=== PATIENT | female | born 2005 | race Caucasian/White ===

== ENCOUNTER 2025-05-27 10:02 | Outpatient (AMB) | payer BC, SELFPAY ==
--- NOTE | 2025-05-27 10:04 | MHC.OFFVIS ---
Intake Visit Reasons: 6 MONTH F/U Allergies No Known Allergies Allergy (Verified 05/27/25 10:05) Medication List - Last Reconciled 05/27/25 by Sanam Prince CNP levocetirizine 5 mg PO DAILY PRN metformin 1,000 mg PO DAILY semaglutide (weight loss) (Wegovy) 0.5 mg subcut Q4W sumatriptan succinate take 1 tab at onset of headache; if no relief, may repeat 1 tab after at least 2 hrs; max = 2 tabs/24 hrs PO topiramate 50 mg PO BEDTIME HPI Comments Details: 20-year-old woman with migraine. She was getting more migraines over the last 2 months or so. She was getting headaches about 2x/week with photophobia, sonophobia, and nausea. No vomiting. Sumatriptan was helping as much anymore. Triggers included certain smells and loud noises. Sometimes, she was waking with headaches. Sleep was okay. [facility] Medical History (Updated 05/27/25 @ 10:07 by Sanam Prince CNP) Migraine Family History (Updated 05/27/25 @ 10:07 by Sanam Prince CNP) Mother Headache Review of Systems Const Denies chills, Denies daytime sleepiness, Denies difficulty sleeping, Denies fatigue, Denies fever(s), Denies frequent falls, Reports headache(s), Denies increased appetite, Denies poor appetite, Denies snoring, Denies weakness, Denies weight gain and Denies weight loss Eyes Denies loss of vision ENT Denies vertigo, Denies dizziness and Reports headache(s) Card Denies chest pain at rest, Denies chest pain with activity, Denies syncope, Denies leg edema and Denies palpitations Resp Denies snoring GI Denies constipation, Denies heartburn, Denies diarrhea and Denies nausea Denies urinary frequency, Denies urinary incontinence and Denies urinary urgency Musc Denies abnormal gait, Denies numbness and Denies tingling Skin/Breast Denies dry skin and Denies rash Neuro Denies abnormal gait, Denies vertigo, Denies dizziness, Denies syncope, Denies frequent falls, Reports headache(s), Denies lack of coordination, Denies loss of vision, Denies memory loss, Denies numbness, Denies restless legs, Denies seizure-like activity, Denies tingling, Denies paresthesias, Denies tremor(s) and Denies weakness Psych Denies anxiety, Denies depression, Denies auditory hallucinations, Denies memory loss, Denies visual hallucinations and Denies suicidal ideation Endo Denies fatigue and Denies palpitations Physical Exam Const Other: General Appearance:? normal, in no acute distress. Skin:? no rashes, no significant birthmarks. Heart:? S1, S2 normal, no murmurs. Lungs:? clear anteriorly and posteriorly. Extremities:? no edema. Psych:? alert, oriented, cognitive function intact, cooperative with exam. Neuro Other: Mental Status:?Normal attention, orientation, memory and affect.? Cranial Nerves:?Pupils are equal, round and reactive to light. External occular muscles are intact. Visual purdy are full. Face is symmetrical. Facial sensations are normal. Tongue is midline. Palate elevates symmetrically. Shoulder shrugging is normal. Hearing to bedside conversation is normal. Sensory Exam:?....? Coordination:?No ataxia,?no titubation.? Gait Exam: Within normal limits. Cerebellar Signs:?Nxluae-xy-hizv is okay. Extrapyramidal System:?No tremor, rigidity with normal facial expressions.? Pronator Drift:?Not present.? Involuntary Movements:?No tremors seen.? Speech:?Normal.? Assessment & Plan Assessment & Plan (1) Migraine without aura: Code(s): G43.009 - Migraine without aura, not intractable, without status migrainosus Category: Medical Qualifiers: Status migrainosus presence: without status migrainosus Intractability: not intractable Qualified Code(s): G43.009 - Migraine without aura, not intractable, without status migrainosus Plan: Sumatriptan was not helping and medication was stopped. Increase topiramate 50mg 1 tablet twice a day. Start rizatriptan 10mg 1 tablet as needed for migraine, use/side effects reviewed. Start ondansetron 4mg 1 tablet as needed for nausea/vomiting #10 for 30 days, use/side effects reviewed. She was going to college in [place], studying [employer]. Will keep follow up as 6 months or sooner as needed. She was advised to contact the office for any new/worsening symptoms, and she was agreeable. Medications: New rizatriptan take 1 tab at onset of headache; if no relief may repeat 1 tab after at least 4 hrs; max = 2 tabs/24 hr PO 10 tabs 5RF 30 days topiramate 50 mg PO BID 180 tabs 0RF 90 days ondansetron 4 mg PO DAILY PRN 10 tabs 5RF nausea and vomiting 30 days Coding Level of Care Code Est Pt Level 4 (65629) Diagnoses Migraine without aura and without status migrainosus, not intractable G43.009 Status migrainosus presence: without status migrainosus Intractability: not intractable
--- OUTSIDE RECORDS SUMMARY | 2025-05-27 12:04 | XMS_ITS ---
Author Name [facility] Organization Unknown History of Medication Use Medication Directions Dispensed Refills Start Date End Date Status levocetirizine (XYZAL) 5 MG tablet 1 tablet daily as needed 0 24 active montelukast (SINGULAIR) 10 MG tablet Take 1 tablet (10 mg total) by mouth nightly. 12/21/19 24 active EPINEPHrine 0.3 mg/0.3 mL IJ auto-injection Inject 0.3 mL (0.3 mg total) into the shoulder, thigh, or buttocks once as needed for allergic reaction. 10/10/19 24 active amoxicillin-pot clavulanateTake 1 Tablet (oral) 2 times per day for 7 [id number] times per [id number] 5mg 08/08/19 24 active spironolactone (ALDACTONE) 100 MG tablet Take 1 tablet (100 mg total) by mouth daily. 07/21/19 24 active SUMAtriptan (IMITREX) 100 MG tablet TAKE 1 TABLET BY MOUTH EVERY DAY NEEDED FOR 30 DAYS 07/21/19 24 active topiramate (TOPAMAX) 50 MG tablet Take 1 tablet (50 mg total) by mouth daily. 07/21/19 24 active MacrobidTake 1 Capsu le 2 times per day for 7 [id number] times per dayNo route frscdkyd7ptowbtilmtzvl75 0mg 03/10/20 23 suspended montelukastTake 1 Ta blet (oral) at bedtime for 30 [id number] bedtime jrwx98wothhlnrbcuwp49rw 03/08/20 23 suspended promethazine-DMTake 5 ml (oral) every 4 [id number] 4 hoursoralNo set duration recordeddayssuspended6.2 5-15mg/5 mL 02/12/20 23 suspended azelastine (ASTELIN) 0.1 % nasal spray 2 sprays into each nostril. 11/30/19 024 active levocetirizine (XYZAL) 5 MG tablet Take 1 tablet (5 mg total) by mouth daily. 10/22/19 024 aborted triamcinolone (NASACORT AQ) 55 MCG/ACT Aerosol nasal spray 2 sprays per nostril daily 10/22/19 active levocetirizineTake (oral)[id number] frequency recordedoralNo set duration recordedNo set duration amount kpjqgneerbqyyb2bh 10/22/19 active triamcinolone acetonideTake (intranasal)[id number] ravi, SprayNo frequency recordedintranasalNo set duration recordedNo set duration amount nwgvwtatkdqddzndl27cfx 10/22/19 suspended azelastineTake (intranasal)[id number] ravi, spray with pumpNo frequency recordedintranasalNo set duration recordedNo set duration amount wruuzcmdfragsnveb916 mcg(0.1 %) 09/24/19 suspended topiramateTake (oral)28225162sktllqNl frequency recordedoralNo set duration recordedNo set duration amount jfxvqbjwzdluto48wr 01/15/20 22 active metFORMINTake (oral) No date recordedtabletNo frequency recordedoralNo set duration recordedNo set duration amount fsncsoarbuhnpm432ij active EPINEPHrineTake (injection)No date recordedAuto-InjectorNo frequency recordedinjectionNo set duration recordedNo set duration amount recordedsuspended0.3mg/0 .3 mL suspended NexplanonTakeNo date recordedNo form recordedNo frequency recordedNo route recordedNo set duration recordedNo set duration amount recordedactiveNo dosage strength recordedNo dosage strength units of measure recorded active spironolactoneTakeNo date recordedNo form recordedNo frequency recordedNo route recordedNo set duration recordedNo set duration amount recordedactiveNo dosage strength recordedNo dosage strength units of measure recorded active SUMAtriptan succinateTake (oral)No date recordedtabletNo frequency recordedoralNo set duration recordedNo set duration amount imgmumnxjuvaim380ul active Etonogestrel (NEXPLANON SC) Inject under the skin. active metFORMIN (GLUCOPHAGE) 500 MG tablet Take 1 tablet (500 mg total) by mouth 2 (two) times a day with meals. acti ve Allergies Allergen Reaction Severity Comment Documented Date Source Statu s POLLEN EXTRACT ITCHING 08/31/2017 [facility] active Problems Problem Status Onset Date Problem Type Date of Resolution Source Acute sinusitis, unspecified active 2023-08-08 [facility] Insulin resistance, unspecified active [facility] Influenza due to other identified influenza virus with other respiratory manifestations active 2023-08-08 [facility] Other seasonal allergic rhinitis active [facility] Migraine headache active 2015-11-26 ProblemAct [facility] Irregular menstrual cycle active 2020-01-22 ProblemAct [facility] Allergic conjunctivitis, bilateral active EncounterDiagnosisAct [facility] Insulin resistance active 2023-10-10 ProblemAct [facility] Allergic rhinitis active 2010-10-13 ProblemAct [facility] [place]atter's disease of both knees active 2020-08-15 ProblemAct [facility] Hirsutism active 2020-08-15 ProblemAct [facility] Vitamin D deficiency active 2017-06-27 ProblemAct [facility] Non-seasonal allergic rhinitis due to other allergic trigger active EncounterDiagnosisAct [facility] Immunizations Vaccine Date Source Lot Number Status Influenza, Unspecified 04/25/2023 [facility] [id number] co mpleted Influenza, Unspecified 04/21/2022 [facility] [id number] co mpleted Meningococcal MCV4O (Menveo) 04/21/2022 [facility] [id number] A completed Influenza, Unspecified 03/25/2021 [facility] [id number] co mpleted Influenza, Unspecified 05/23/2018 [facility] [id number] co mpleted HPV Nonavalent 06/24/2017 [facility] [id number] completed Influenza, Unspecified 06/24/2017 [facility] [id number] co mpleted HPV Nonavalent 11/25/2016 [facility] [id number] completed Meningococcal MCV4P (Menactra) 11/25/2016 [facility] [id number] completed Tdap 11/25/2016 [facility] [id number] completed Influenza Inactivated/Split Preservative Free IM 04/09/2011 [facility] [id number] completed MMR 07/28/2010 [facility] [id number] completed Varicella 07/28/2010 [facility] [id number] completed Influenza Inactivated/Split Preservative Free IM 03/23/2010 [facility] [id number] completed DTaP 07/22/2009 [facility] [id number] completed IPV 07/22/2009 [facility] [id number] completed Influenza Inactivated/Split Preservative Free IM 05/07/2008 [facility] [id number] completed Hep A, 2 Dose 2007 [facility] [id number] completed Influenza Inactivated/Split Preservative Free IM 2007 [facility] [id number] completed DTAP / HiB 08/12/2006 [facility] [id number] completed Hep A, 2 Dose 08/12/2006 [facility] [id number] completed Influenza Inactivated/Split Preservative Free IM 05/04/2006 [facility] [id number] completed MMRV 05/04/2006 [facility] [id number] completed Pneumococcal Conjugate 7-Valent 05/04/2006 [facility] [id number] [id number] completed Influenza Inactivated/Split Preservative Free IM 04/01/2006 [facility] [id number] completed DTaP / Hep B / IPV 2005 [facility] [id number] comple tricia DTaP / HiB / IPV 2005 [facility] [id number] complete d Pneumococcal Conjugate 7-Valent 2005 [facility] B086 43D completed DTaP / Hep B / IPV 2005 [facility] [id number] comple tricia DTaP / HiB / IPV 2005 [facility] [id number] complete d Pneumococcal Conjugate 7-Valent 2005 [facility] B086 38F completed DTaP / Hep B / IPV 2005 [facility] [id number] comple tricia DTaP / HiB / IPV 2005 [facility] [id number] complete d Pneumococcal Conjugate 7-Valent 2005 CCT [id number] 41F completed Hep B, Adolescent or Pediatric 2005 CCT completed Encounters Encounter Type Encounter Reason Primary Diagnosis Location Date Ambulatory Encounter for general adult medical examination without abnormal findings Encounter for general adult medical examination without abnormal findings [facility] 01/16/2025 Ambulatory Other allergic rhinitis Other allergic rhinitis [facility] 12/21/2023 Ambulatory Other seasonal allergic rhinitis Other seasonal allergic rhinitis [facility] 10/10/2023 Ambulatory [facility] 03/10/2023 Ambulatory [facility] 03/08/2023 Ambulatory [facility] 02/11/2023 Care Team Organization Name Specialty Phone Email Start Date End [facility] 03/28/2025 [facility] SHIVANI Primary Care 10/11/2023 [facility] MEHRDAD PARRISH Primary Care 10/10/2023 [facility] NO PCP Primary Care 08/23/2023 [facility] NO PROVIDER Primary Care 06/26/2023 [facility] 02/11/2023 01/29/2025 [facility] 02/11/2023 02/11/2023
--- OUTSIDE RECORDS SUMMARY | 2025-05-27 12:04 | XMS_ITS | Clinical Summary ---
Author Organization [facility] [address] [facility] lding Address [address] [place] [address] Phone Care Team Providers Care Medical Biller/Coder Name Role Phone Ghazala Birgit FLEMING Primary Care Provider [phone] Allergies Active Allergy Reactions Criticality Noted Date Comments Bee Pollen Itching Low 08/31/2017 Other Runny nose 08/31/2017 Seasonal allergies Medications etonogestrel-elut ing contraceptive device (Nexplanon) 68 mg implant subdermal implant Inject 68 mg into the skin Once. 1 Active spironolactone (ALDACTONE) 100 mg tablet TAKE 1 TABLET BY MOUTH EVERY DAY 4 Active SUMAtriptan (IMITREX) 100 mg tablet Take 100 mg by mouth daily. 1 Active triamcinolone (NASACORT) 55 mcg nasal inhaler INHALE 1 TO 2 SPRAYS EACH NOSTRIL ONCE A DAY 3 Active EPINEPHrine (EPIPEN) 0.3 mg/0.3 mL injection INJECT 0.3 ML INTO THE SHOULDER, THIGH, OR BUTTOCKS ONCE NEEDED FOR ALLERGIC REACTION. 4 Active azelastine (ASTELIN) 137 mcg (0.1 %) nasal spray Administer 2 sprays into affected nostril(s). 3 Active montelukast (SINGULAIR) 10 mg tablet Take 1 tablet (10 mg total) by mouth at bedtime. 4 Active metFORMIN (GLUCOPHAGE) 1,000 mg tablet Take 0.5 tablets (500 mg total) by mouth 2 (two) times a day with meals. 4 Active topiramate (TOPAMAX) 50 mg tablet Take 1 tablet (50 mg total) by mouth 1 (one) time each day. for 90 days 4 Active EPINEPHrine (EPIPEN) 0.3 mg/0.3 mL injection Inject 0.3 mL (0.3 mg total) into the thigh once daily as needed. 4 Active levocetirizine (XYZAL) 5 mg tablet 1 tablet daily as needed 4 Active Active Problems Problem Noted Date Diagnosed Date Depression 04/21/2022 Right elbow pain 07/22/2021 Overview (03/20/2024): 07/28: injured sliding into base. Xray negative. 07/16/21: seen at [facility]. Strain flexor pronator mass. Symptomatic treatment head/itce for 3 weeks. No physical acitivity for 3 weeks. F/u prn Hirsutism 08/15/2020 Overview (03/20/2024): 01/24: seen by Manish Roberts spironolactone 100 mg po daily f/u March [place]-Schlatter's disease of both knees 021 Irregular menstrual cycle 01/22/2020 Tinea versicolor 01/22/2020 Acne vulgaris 12/01/2017 Vitamin D deficiency 06/27/2017 Overview (03/20/2024): 06/27/17- levels of 20, started on 2000 units for next 6 weeks of Vit D 01/23: vitamin d, 20 restarted on vitamin d supplement Childhood obesity 11/26/2015 Overview (03/20/2024): 11/19: Normal screening labs, referred to Dr. Guzman's 123 power of ak Migraine headache 11/26/2015 Overview (03/20/2024): 02/22: headaches that wake her from sleep worsening in severity. MRI brain : nl started on topirimate. 03/22/19: seen by Dr. Baker, advised to stop the topirimate. C/w sumatriptan 100 mg po prn. F/u 4 weeks 07/19/19: [facility]. For migraine prophylaxis she is on topiramate 25 mg once a day. She reports the medication is helping her. Sumatriptan 100 mg orally once a day. Follow-up next summer. 01/15/21: Allergic rhinitis 10/13/2010 Overview (03/20/2024): spring and end of summer; claritan, nose spray, eye drops 06/23: positive [place] allergy panel to maple, birch and oak trees. Kevyn grass and to a lesser extent Elm trees and ragweed Immunizations Immunization Administration Dates Next Due DTaP (Infanrix) 6wks to less than 7yo 07/22/2009 DTaP / Hib 08/12/2006 [id number]-LUN-RSG (Pentacel) 2mo to less than 5yo 2005,2005,2005 GNgH-FkqF-QKP (Pediarix) 6 w ks to less than 7yo 2005,2005,2005 HPV 9-valent (Gardisil) 9yo to less than 46yo 06/24/2017,11/25/2016 Hepatitis A Pediatric (Havri x; Vaqta) 12mo to less than 19yo 2007,08/12/2006 Hepatitis B Pediatric (Enger ix B; Recombivax HB) to less than 20 yo 2005 IPV Inactivated polio (Ipol) 6wks and older 07/22/2009 Influenza trivalent, 0.5mL, preservative free (Fluarix; FluLaval; Fluzone) ages 6mo and older (Afluria) 3 years and older 04/25/2023,04/21/2022,03/25/2021,05/23,06/24/2017,04/09/2011,03/23/2010 ,05/07/2008 Influenza trivalent, with pr eservative (Fluzone; Afluria) 6mo and older 2007,05/04/2006,04/01/2006 MMR, measles mumps and rubel la Live (Priorix; M-M-R II) 12mo and older 07/28/2010 MMRV, measles mumps rubella and varicella live (Proquad) 4yo to less than 7yo 05/04/2006 Meningococcal Conjugate (Men veo) MenACWY 11yo to less than 19 yo 04/21/2022 Meningococcal MCV4P 11/25/2016 Pneumococcal Conjugate Vacci ne, 7 Valent 05/04/2006,2005,2005,07/12 Tdap Tetanus diptheria acell ular pertussis (Boostrix; Adacel) 7yo and older 11/25/2016 Varicella live (Varivax) 12m o and older 07/28/2010 Surgical History Surgery Date Site/Laterality Comments OTHER SURGICAL HISTORY PROCEDURE: DENIES PREVIOUS SURGERY Medical History Medical History Date Comments Lactose intolerance DX:Lactose i ntolerance Allergic rhinitis DX:Allergic rh initis; COMMENT: spring Allergic conjunctivitis DX:Aller gic conjunctivitis; COMMENT: spring Obesity DX:Obesity Fracture of thumb, right, closed 12/17 DX:Fracture of thumb, right, closed; COMMENT: shilpa 2; not displaced Fracture of phalanx of right little finger 09/25/2015 DX:Fracture of phalanx of ri ght little finger; COM[facility]: [facility] proximal ph[facility]. Ulnar gutter cast. Recheck in 3 weeks Overweight for pediatric patient 09/06/2013 DX:Overweight for pediatric patient Sinus headache 10/18/2018 DX:Sinus headach e Migraine headache with aura DX:M igraine headache with aura Tinea versicolor 01/22/2020 DX:Tinea versic olor Perennial allergic rhinitis 10/18/2018 DX:P erennial allergic rhinitis Perennial allergic conjuncti vitis of both eyes 10/18/2018 DX:Perennial allergic conjun ctivitis of both eyes Family History Medical History Relation Name Comments Asthma Brother Asthma Father Hyperlipidemia Father Other cancer Maternal Grandfather ESOPHAG EAL Allergies Mother Migraines Mother Heart attack Mother's side 42 Diabetes Paternal Grandfather Breast cancer Paternal Grandmother Asthma Sister Ovarian cancer Neg Hx Uterine cancer Neg Hx Relation Name Status Comments Brother Father Alive obesity Maternal Grandfather esophag eal CA; coronary bypass Maternal Grandmother Alive Mother Alive platelet disord er; migraines; obesity Mother's side Paternal Grandfather Alive Paternal Grandmother CA mult sites Sister Social History Tobacco Use Types Packs/Day Years Used Date Smoking Tobacco: Never Smokeless Tobacco: Never Alcohol Use Standard Drinks/Week Comments No 0 (1 standard drink = 0.6 oz pur e alcohol) Comments No Sex and Gender Information Value Date Recorded Sex Assigned at Not on file Legal Sex Female 11:27 AM EST Gender Identity Not on file Sexual Orientation Not on file 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 Not on file Not on file Not on file Obstetrics History Para Term AB IAB SAB Ectopic Multiple Livin g Live Births 0 0 0 0 0 0 0 0 Last Filed Vital Signs Vital Sign Reading Time Taken Comments Blood Pressure 125/85 05/01/2024 3:30 PM EST Pulse 104 05/01/2024 3:30 PM EST Temperature - - Respiratory Rate - - Oxygen Saturation - - Inhaled Oxygen Concentration - - Weight 122 kg (268 lb) 05/01/2024 3:30 PM EST Height 172.5 cm (5' 7.91 ) 04/25/2023 3:12 PM ES T Body Mass Index - - Plan of Treatment Health Maintenance Due Date Last Done Comments Meningococcal B Vaccine (1 of 2 - Standard) 2021 HIV Screening 05/15/2022 Hepatitis C Screening 05/15/2022 Social Influencers of Health Screening 05/15/2022 Depression Screening 06/06/2024 COVID-19 Vaccine ( season) 2025 11/24/2020, 10/24/2020 Influenza Vaccine (#1) 2025 , 04/21/2022, 03/25/2021, Additional history exists Annual Well Child Visit (3-21 years old) 05/01/2025 05/01/2024, 04/25/2023, 04/21/2022, Additional history exists Gonorrhea/Chlamydia Screening 05/01/2025 05/01/2024, 04/25/2023 Cholesterol Screening (Lipid Panel) 03/25/2026 03/25/2021 DTaP,Tdap,and Td Vaccines (7 - Td or Tdap) 11/25/2026 11/25/2016, 07/22/2009, 08/12/2006, Additional history exists RSV Immunization Adult Patients (1 - 1-dose 75+ series) 2080 Hepatitis B Vaccines Completed 2005, 2005, 2005, Additional history exists Pneumococcal Vaccine: Pediatrics (0 to 5 Years) and At-Risk Patients (6 to 49 Years) Completed 05/04/2006, 2005, 2005, Additional history exists HIB Vaccines Completed 08/12/2006, 07/2005, 2005, Additional history exists Hepatitis A Vaccines Completed 2007, 08/13/19 07 IPV Vaccines Completed 07/22/2009, 07/2005, 2005, Additional history exists MMR Vaccines Completed 07/28/2010, 05/04/2006 Varicella Vaccines Completed 07/28/2010, 05/04/2006 HPV Vaccines Completed 06/24/2017, 11/25/2016 Meningococcal ACWY Vaccine Completed 11/27, 04/21/2022, 11/25/2016 RSV Immunization Patients Under 20 months Aged Out No longer eligible based on patient's age to complete this topic Procedures Procedure Name Priority Date/Time Associated Diagnosis Comments CHLAMYDIA TRACHOMATIS AND NEISSERIA GONORRHOEAE PCR Routine 05/01/2024 4:42 PM EST Screen for STD (sexually transmitted disease) LIPID PANEL Routine 03/25/2021 from Last 3 Months or Most Recently Relevant to Health Maintenance Results * Chlamydia trachomatis and Neisseria gonorrhoeae molecular study (05/01/2024 4:42 PM EST) Neisseria gonorrhoeae PCR Negative Negative LAB MOLECULAR DIAGNOSTICS METHOD 05/02/2024 9:38 AM EST [facility] Chlamydia trachomatis PCR Negative Negative LAB MOLECULAR DIAGNOSTICS METHOD 05/02/2024 9:38 AM [facility] Swab Vaginal structure / Unknown Non-blood Collection / Unknown 05/01/2024 4:42 PM EST 05/01/2024 4:44 PM EST Asaf Waters CNM LAB MICROBIOLOGY - GENERAL ORD ERABLES Final Result [facility] [address] [place] [address], * (ABNORMAL) Lipid panel (03/25/2021) LDL/HDL Ratio 3 0 - 4 Triglycerides 111 0 - 150 mg/dL Cholesterol 124 0 - 200 mg/dL HDL 36(A) >=40 mg/dL LDL Cholesterol 66 0 - 100 mg/dL Blood Venous blood specimen / Unknown Historical Provider LAB BLOOD ORDERABLES Luh l Result from Last 3 Months or Most Recently Relevant to Health Maintenance Insurance Care Teams Medical Biller/Coder Relationship Specialty Start Date End Date Birgit Vivar DO PCP - General Internal Medicine 02/19/22
--- OUTSIDE RECORDS SUMMARY | 2025-05-27 12:04 | XMS_ITS | Encounter Summary ---
Author Organization [facility] Address [address] [place] [address] Care Team Providers Care Hot Tamale Worker Name Role Phone Dianna Cano PA-C Primary Care Provi sabrina Encounter Details Date Type Department Care Team (Late st Contact Info) Description 05/24/2024 Scanned Document [address] [place] [id number] Primary Care, Scan Social History Tobacco Use Types Packs/Day Years Used Date Smoking Tobacco: Never Smokeless Tobacco: Never Alcohol Use Standard Drinks/Week Comments Never 0 (1 standard drink = 0.6 oz pur e alcohol) PHQ-2 Answer Date Recorded PHQ-2 Total Score 2 10/10/2023 Comments Unknown Sex and Gender Information Value Date Recorded Sex Assigned at Female 08/23/2023 9:26 AM EDT Legal Sex Female 9:25 AM EDT Gender Identity Not on file Sexual Orientation Not on file documented as of this encounter Plan of Treatment Not on file documented as of this encounter Visit Diagnoses Not on filedocumented in this encounter Care Teams Hot Tamale Worker Relationship Specialty Start Date End Date Dianna Cano PA-C [address] [place] [address] PCP - General Internal Medicine 10/10/23 documented as of this encounter
--- OUTSIDE RECORDS SUMMARY | 2025-05-27 12:04 | XMS_ITS | Encounter Summary ---
Author Organization [facility] Address [address] [place] [address] Care Team Providers Care Coach Operator Name Role Phone Dianna Cano PA-C Primary Care Provi sabrina Encounter Details Date Type Department Care Team (Late st Contact Info) Description 12/06/2024 Scanned Document [facility] [address] [place] [address] Endocrinology, Scan Social History Tobacco Use Types Packs/Day [...] on filedocumented in this encounter Care Teams Coach Operator Relationship Specialty Start Date End Date Dianna Cano PA-C [address] [place] [address] PCP - General Internal Medicine 10/10/23 documented as of this encounter
--- OUTSIDE RECORDS SUMMARY | 2025-05-27 12:04 | XMS_ITS | Clinical Summary ---
Author Organization [facility] Address [address] [place] [address] Care Team Providers Care Gaming Worker Name Role Phone Dianna Cano PA-C Primary Care Provi sabrina Allergies Active Allergy Reactions Criticality Noted Date Comments [place] Oil Anaphylaxis High 01/29/2024 pistachio Pollen Extract Itching Low 08/31/2017 Medications topiramate (TOPAMAX) 50 MG tablet Take 1 tablet (50 mg total) by mouth daily. 07/21/2023 Active spironolactone (ALDACTONE) 100 MG tablet Take 1 tablet (100 mg total) by mouth daily. 07/21/2023 Active metFORMIN (GLUCOPHAGE) 500 MG tablet Take 2 tablets (1,000 mg total) by mouth daily. Active Etonogestrel (NEXPLANON SC) Inject under the skin. Active EPINEPHrine 0.3 mg/0.3 mL IJ auto-injectionI ndications:Seas onal allergies Inject 0.3 mL (0.3 mg total) into the shoulder, thigh, or buttocks once as needed for allergic reaction. 2 each 1 10/10/2023 Active Wegovy 0.5 MG/0.5ML Solution Auto-injector 01/07/2025 Activ e levocetirizine (XYZAL) 5 MG tabletIndicatio ns:Non-seasonal allergic rhinitis due to other allergic trigger 1 tablet daily as needed 90 tablet 3 01/16/2025 Active Active Problems Problem Noted Date Diagnosed Date PCOS (polycystic ovarian syndrome) 01/16/2025 Assessment & Plan (01/16/2025 3:21 PM EDT): Follows with [facility] endocrine. Last seen November 30, 2024. She is on Nexplanon for menstrual regulation. She is on spironolactone for hirsutism. She is on metformin for insulin resistance. She was started on Wegovy for weight loss and to decrease her risk of metabolic syndrome. She is down 55 pounds since last year. She is working very hard with diet and exercise as well. She states that her periods are much more regular. Insulin resistance 10/10/2023 10/10/2023 Assessment & Plan (01/16/2025 3:21 PM EDT): Follows with [facility] endocrine. Last seen November 30, 2024. She is on Nexplanon for menstrual regulation. She is on spironolactone for hirsutism. She is on metformin for insulin resistance. She was started on Wegovy for weight loss and to decrease her risk of metabolic syndrome. She is down 55 pounds since last year. She is working very hard with diet and exercise as well. She states that her periods are much more regular. Hirsutism 08/15/2020 10/10/2023 Overview (10/10/2023): 01/24: seen by Manish Roberts spironolactone 100 mg po daily /march Assessment & Plan (01/16/2025 3:21 PM EDT): Follows with [facility] endocrine. Last seen November 30, 2024. She is on Nexplanon for menstrual regulation. She is on spironolactone for hirsutism. She is on metformin for insulin resistance. She was started on Wegovy for weight loss and to decrease her risk of metabolic syndrome. She is down 55 pounds since last year. She is working very hard with diet and exercise as well. She states that her periods are much more regular. [place]-Schlatter's disease of both knees 021 10/10/2023 Irregular menstrual cycle 01/22/20202023 Assessment & Plan (01/16/2025 3:21 PM EDT): Follows with [facility] endocrine. Last seen November 30, 2024. She is on Nexplanon for menstrual regulation. She is on spironolactone for hirsutism. She is on metformin for insulin resistance. She was started on Wegovy for weight loss and to decrease her risk of metabolic syndrome. She is down 55 pounds since last year. She is working very hard with diet and exercise as well. She states that her periods are much more regular. Vitamin D deficiency 06/27/2017 10/10/2023 Overview (10/10/2023): 06/27/17- levels of 20, started on 2000 units for next 6 weeks of Vit D 01/23: vitamin d, 20 restarted on vitamin d supplement Assessment & Plan (01/16/2025 2:55 PM EDT): Will check vitamin D level. Patient is not on any vitamin D supplements. Migraine headache 11/26/2015 10/10/2023 Overview (10/10/2023): 02/22: headaches that wake her from sleep worsening in severity. MRI brain : nl started on topirimate. 03/22/19: seen by Dr. Baker, advised to stop the topirimate. C/w sumatriptan 100 mg po prn. F/u 4 weeks 07/19/19: At [facility]. For migraine prophylaxis she is on topiramate 25 mg once a day. She reports the medication is helping her. Sumatriptan 100 mg orally once a day. Follow-up next summer. 01/15/21: Assessment & Plan (01/16/2025 3:21 PM EDT): Patient follows with neurology. She is on topiramate for prevention. Takes Imitrex as needed. Gets 1-2 headaches a month of that. Allergic rhinitis 10/13/2010 10/10/2023 Overview (10/10/2023): 09/18 spring and end of summer; claritan, nose spray, eye drops 06/23: positive [place] allergy panel to maple, birch and oak trees. [place] grass and to a lesser extent Elm trees and ragweed Assessment & Plan (01/16/2025 3:21 PM EDT): No longer following with hospice administrator. Taking Xyzal daily. Orders: levocetirizine (XYZAL) 5 MG tablet; 1 tablet daily as needed Immunizations Immunization Administration Dates Next Due DTAP / HiB 08/12/2006 DTaP 07/22/2009 DTaP / Hep B / IPV 2005,2005, 006 DTaP / HiB / IPV 2005,2005, 6 HPV Nonavalent 06/24/2017,11/25/2016 Hep A, 2 Dose 2007,08/12/2006 Hep B, Adolescent or Pediatric 2005 IPV 07/22/2009 Influenza Inactivated/Split Preservative Free IM 04/09/2011,03/23/2010,05/07/2008,05/03,05/04/2006,04/01/2006 Influenza Virus Trivalent Sp lit Vaccine (MDV) IM 2007,05/04/2006,04/01/2006 Influenza, Trivalent (FLUARI X, AFLURIA, FLULAVAL, FLUZONE) Preservative Free IM 04/25/2023,04/21/2022,03/25/2021,05/23,06/24/2017,04/09/2011,03/23/2010 ,05/07/2008 Influenza, Unspecified 04/25/2023,2021,03/25/2021,05/23,06/24/2017 MMR 07/28/2010 MMRV 05/04/2006 Meningococcal MCV4O (Menveo) 04/21/2022 Meningococcal MCV4P (Menactra) 11/25/2016 Pneumococcal Conjugate 7-Valent 05/04/20 06,2005,2005,07/12 Tdap 11/25/2016 Varicella 07/28/2010 Family History Medical History Relation Name Comments Skin cancer Mother Relation Name Status Comments Mother Social History Tobacco Use Types Packs/Day Years Used Date Smoking Tobacco: Never Smokeless Tobacco: Never Tobacco Cessation:Counseling Given: Not Answered Alcohol Use Standard Drinks/Week Comments Never 0 (1 standard drink = 0.6 oz pur e alcohol) PHQ-2 Answer Date Recorded PHQ-2 Total Score 0 01/16/2025 Physical Activity Answer Date Recorded On average, how many days pe r week do you engage in moderate to strenuous exercise (like a brisk walk)? 6 days 01/16/2025 On average, how many minutes do you exercise per day at this level? 150+ min 01/16/2025 Comments Unknown Sex and Gender Information Value Date Recorded Sex Assigned at Female 08/23/2023 9:26 AM EDT Legal Sex Female 9:25 AM EDT Gender Identity Not on file Sexual Orientation Not on file Last Filed Vital Signs Vital Sign Reading Time Taken Comments Blood Pressure 120/70 01/16/2025 3:19 PM EDT Pulse 107 01/16/2025 2:30 PM EDT Temperature 36.4 C (97.5 F) 01/16/2025 2:30 PM EDT Respiratory Rate 17 01/16/2025 2:30 PM EDT Oxygen Saturation 98% 01/16/2025 2:30 PM EDT Inhaled Oxygen Concentration - - Weight 97.8 kg (215 lb 9.6 oz) 01/16/2025 2:30 P M EDT Height 172.7 cm (5' 8 ) 01/16/2025 2:30 PM EDT Body Mass Index 32.78 01/16/2025 2:30 PM EDT Plan of Treatment Health Maintenance Due Date Last Done Comments Hepatitis C Virus Screening 2005 HIV Screening 2018 Influenza Vaccine 01/04/2025 04/25/2023, , 04/25/2023, Additional history exists COVID-19 Vaccine ( season) 2025 11/24/2020, 10/24/2020 DTaP/Tdap/Td Vaccines (7 - Td or Tdap) 11/25/2026 11/25/2016, 07/22/2009, 08/12/2006, Additional history exists Physical 01/17/2028 01/16/2025 Hepatitis B Vaccines Completed 2005, 2005, 2005, Additional history exists Pneumococcal Vaccine: Pediatric (0-5 Years) and At-Risk Patients (6 to 49 Years) Aged Out 05/04/2006, 2005, 2005, Additional history exists No longer eligible based on patient's age to complete this topic HPV Vaccines Completed 06/24/2017, 11/25/[address] [place] [place] [address] - [place] [address] - PPO Care Teams Gaming Worker Relationship Specialty Start Date End Date Dianna Cano PA-C [address] [place] [address] PCP - General Internal Medicine 10/10/23
== END 2025-05-27 10:21 | disposition home or self-care (01) ==
LOC: HO.HSM 10:02
PROVIDERS: PCP Pediatrics; Referring Provider Pediatrics; Visit Provider Registered Nurse
DX: G43.009 Migraine without aura, not intractable, without status migrainosus (principal)
CPT/HCPCS: 99214